=== PATIENT | male | born 1940 | race Caucasian/White ===

== ENCOUNTER 2022-07-27 20:43 | Inpatient (IN) | payer OTHER ==
[~2022-07-27] VITALS: Ht 185.4 cm; Wt 100.1 kg
[2022-07-27 22:05] LABS: Basophils # (auto) 0 10 ^3/uL (0-0.2); Basophils % (auto) 0.2 % (0.0-2.0); Eosinophils # (auto) 0.1 10 ^3/uL (0-0.8); Eosinophils % (auto) 0.8 % (0.0-7.0); Hematocrit 39.8 % (41.0-53.0); Hemoglobin 12.8 g/dL (13.5-17.5); Lymphocytes # (auto) 0.8 10 ^3/uL (0.4-5.4); Mean Corpuscular Hemoglobin 29.6 pg (28.0-32.0); Mean Corpuscular Hgb Conc. 32.3 g/dL (32.0-36.0); Mean Corpuscular Volume 91.7 fL (80.0-100.0); Monocytes # (auto) 0.7 10 ^3/uL (0-1.3); Monocytes % (auto) 5.3 % (0.0-12.0); Neutrophils # (auto) 11.4 10 ^3/uL (1.6-8.6); Neutrophils % (auto) 87.7 % (37.0-80.0); Red Blood Cells 4.34 10^6/uL (4.5-5.90); Red Cell Distribution Width 14.7 % (11.8-14.3)
[2022-07-27 22:18] LABS: INR 1.02 (0.9-1.15)
[2022-07-27 22:21] LABS: Albumin 3.4 g/dL (3.4-5.0); Blood Alcohol < 3.0 mg/dL (0-5); Blood Urea Nitrogen 23 mg/dL (7-18); Calcium 9.1 mg/dL (8.5-10.1); Carbon Dioxide 25 mmol/L (21-32); Glucose 151 mg/dL (74-106); Magnesium 2.3 mg/dL (1.6-2.6)
[2022-07-27 22:50] LABS: Chloride 108 mmol/L (98-107); GFR African American 73 mL/min; GFR Non-African American 60 mL/min; Potassium 4.3 mmol/L (3.5-5.1); Sodium 142 mmol/L (136-145)
[2022-07-27 22:58] LABS: Alanine Aminotransferase 28 U/L (16-61); Alkaline Phosphatase 99 U/L (45-117); Aspartate Aminotransferase 18 U/L (15-37); Bilirubin, Total 0.7 mg/dL (0.2-1.0)
[2022-07-27 22:59] LABS: Anion Gap 9 (5-15); Total Protein 6.2 g/dL (6.4-8.2)
[2022-07-27 23:00] LABS: BUN/Creatinine Ratio 18.7
[2022-07-28] MEDS ORDERED: ONDANSETRON HCL 4 MG/2 ML VIAL IV ONE (00:45)
[2022-07-28] MEDS ORDERED: MORPHINE SULFATE INJ 2 MG/ml SYRG IV ONE (00:45)
[2022-07-28] MEDS ORDERED: levoFLOXacin 750MG 150 ML IV ONE (01:15)
[2022-07-28 01:56] LABS: Urine Bacteria NONE SEEN /hpf (None Seen); Urine Blood Negative /uL (Negative); Urine Hyaline Cast FEW /lpf (0 - 2); Urine Mucus FEW (None Seen); Urine Specific Gravity 1.024 (1.001-1.035); Urine WBC 5 /hpf (0 - 3)
[2022-07-28 02:03] LABS: Alcohol, Urine < 3.0 mg/dL (0-10); Amphetamine Screen, Urine NEGATIVE (NEGATIVE); Barbiturate Scree,Urine NEGATIVE (NEGATIVE); Benzodiazephine Screen, Urine NEGATIVE (NEGATIVE); Cannabinoid Screen, Urine NEGATIVE (NEGATIVE); Cocaine Screen, Urine NEGATIVE (NEGATIVE); Opiate Scree,Urine NEGATIVE (NEGATIVE); Phencyclidine Screen, Urine NEGATIVE (NEGATIVE)
[2022-07-28] MEDS ORDERED: MORPHINE SULFATE INJ 2 MG/ml SYRG IV PRN ×2 (02:15)
[2022-07-28] MEDS ORDERED: DOCUSATE SOD 100 MG CAP PO PRN (02:15)
[2022-07-28] MEDS ORDERED: NITROGLYCERIN 0.4 MG SL TAB SL PRN (02:15)
[2022-07-28] MEDS ORDERED: ACETAMINOPHEN 325 MG TAB PO PRN (02:15)
[2022-07-28] MEDS ORDERED: ONDANSETRON HCL 4 MG/2 ML VIAL IV PRN (02:15)
[2022-07-28 02:27] VITALS: BP 116/59
[2022-07-28] MEDS ORDERED: IPRATROPIUM BROM 0.5 MG/2.5ML INH SOL NEB PRN (02:30)
[2022-07-28] MEDS ORDERED: ALBUTEROL SULF 2.5 MG/0.5ML(0.5%) NEB SOLN NEB PRN (02:30)
[2022-07-28 04:47] LABS: Basophils # (auto) 0.1 10 ^3/uL (0-0.2); Basophils % (auto) 0.5 % (0.0-2.0); Eosinophils # (auto) 0.1 10 ^3/uL (0-0.8); Eosinophils % (auto) 1.1 % (0.0-7.0); Hematocrit 36.2 % (41.0-53.0); Hemoglobin 12.3 g/dL (13.5-17.5); Lymphocytes # (auto) 0.8 10 ^3/uL (0.4-5.4); Mean Corpuscular Hemoglobin 30.3 pg (28.0-32.0); Mean Corpuscular Hgb Conc. 33.9 g/dL (32.0-36.0); Mean Corpuscular Volume 89.4 fL (80.0-100.0); Monocytes # (auto) 0.7 10 ^3/uL (0-1.3); Monocytes % (auto) 6.7 % (0.0-12.0); Neutrophils # (auto) 9.1 10 ^3/uL (1.6-8.6); Neutrophils % (auto) 84.7 % (37.0-80.0); Red Blood Cells 4.05 10^6/uL (4.5-5.90); Red Cell Distribution Width 14.3 % (11.8-14.3); White Blood Cell 10.8 10^3/uL (4.4-10.8)
[2022-07-28 05:06] LABS: Calcium 8.7 mg/dL (8.5-10.1)
[2022-07-28 05:09] LABS: BUN/Creatinine Ratio 20.2; Bilirubin, Total 0.6 mg/dL (0.2-1.0); Total Protein 6.1 g/dL (6.4-8.2)
[2022-07-28] MEDS: SODIUM CHLOR 0.9% PF (SALINE LOCK) 10ML VIAL/SYR IV SCH ×3 (05:43→23:44)
[2022-07-28] MEDS: HYDROcodone-ACET 5/325MG TAB PO PRN (08:34)
[2022-07-28] MEDS: FAMOTIDINE (10MG/ML) 2ML VL IV SCH ×2 (10:00→23:44)
[2022-07-28] MEDS: metroNIDAZOLE 500MG/100ML 100 ML IV SCH ×2 (14:11→23:45)
[2022-07-28 22:00] VITALS: BP 131/66
[2022-07-29 00:13] VITALS: BP 131/66
[2022-07-29] MEDS: HYDROcodone-ACET 5/325MG TAB PO PRN (01:05)
[2022-07-29 05:00] VITALS: BP 124/71
[2022-07-29] MEDS: metroNIDAZOLE 500MG/100ML 100 ML IV SCH ×3 (05:20→23:01)
[2022-07-29] MEDS: SODIUM CHLOR 0.9% PF (SALINE LOCK) 10ML VIAL/SYR IV SCH ×3 (05:30→23:02)
[2022-07-29 06:15] LABS: Basophils # (auto) 0.1 10 ^3/uL (0-0.2); Basophils % (auto) 0.8 % (0.0-2.0); Eosinophils # (auto) 0.3 10 ^3/uL (0-0.8); Eosinophils % (auto) 3.6 % (0.0-7.0); Hematocrit 36.7 % (41.0-53.0); Hemoglobin 12.4 g/dL (13.5-17.5); Lymphocytes # (auto) 1.5 10 ^3/uL (0.4-5.4); Lymphocytes % (auto) 19.1 % (10.0-50.0); Mean Corpuscular Hemoglobin 30.5 pg (28.0-32.0); Mean Corpuscular Hgb Conc. 33.9 g/dL (32.0-36.0); Mean Corpuscular Volume 89.9 fL (80.0-100.0); Monocytes # (auto) 0.8 10 ^3/uL (0-1.3); Monocytes % (auto) 10.3 % (0.0-12.0); Neutrophils # (auto) 5.2 10 ^3/uL (1.6-8.6); Neutrophils % (auto) 66.2 % (37.0-80.0); Red Blood Cells 4.08 10^6/uL (4.5-5.90); Red Cell Distribution Width 14.3 % (11.8-14.3); White Blood Cell 7.9 10^3/uL (4.4-10.8)
[2022-07-29 06:17] LABS: Potassium 4.3 mmol/L (3.5-5.1)
[2022-07-29 06:25] LABS: Albumin 2.9 g/dL (3.4-5.0); BUN/Creatinine Ratio 19.6; Bilirubin, Total 0.6 mg/dL (0.2-1.0); Total Protein 5.5 g/dL (6.4-8.2)
[2022-07-29] MEDS ORDERED: ESOM40CA83 PO (07:26)
[2022-07-29] MEDS ORDERED: DILT-104 PO (07:26)
[2022-07-29] MEDS ORDERED: POTA-167 PO (07:26)
[2022-07-29] MEDS ORDERED: LISI20TA28 PO (07:26)
[2022-07-29] MEDS ORDERED: APIX5TAB PO (07:26)
[2022-07-29] MEDS ORDERED: FURO40TA4 PO (07:26)
[2022-07-29] MEDS ORDERED: ATOR40TA52 PO (07:26)
[2022-07-29 08:39] VITALS: BP 134/75
[2022-07-29] MEDS: FAMOTIDINE (10MG/ML) 2ML VL IV SCH ×2 (09:52→23:02)
[2022-07-29] MEDS: levoFLOXacin 500MG 100 ML IV SCH (09:53)
[2022-07-29 13:00] VITALS: BP 137/74
[2022-07-29] MEDS ORDERED: IOHEXOL 350 MG/ML 100ML IJ ONE ×2 (14:12→16:17)
[2022-07-29 14:40] LABS: Cholesterol 104 mg/dL (< 200); Triglycerides 76 mg/dL (< 150)
[2022-07-29 14:43] LABS: HDL Cholesterol 43 mg/dL (40-59); LDL Cholesterol 52 mg/dL (< 100)
[2022-07-29] MEDS: ASPirin 81 mg TAB PO SCH (15:11)
[2022-07-29 16:56] VITALS: BP 136/69
[2022-07-29 22:00] VITALS: BP 116/66
[2022-07-29] MEDS ORDERED: ATORVASTATIN 20 MG TAB PO SCH (22:00)
[2022-07-29] MEDS: APIXABAN 5 MG TAB PO SCH (23:02)
[2022-07-30 05:00] VITALS: BP 128/75
[2022-07-30] MEDS: metroNIDAZOLE 500MG/100ML 100 ML IV SCH ×2 (05:42→14:40)
[2022-07-30] MEDS: SODIUM CHLOR 0.9% PF (SALINE LOCK) 10ML VIAL/SYR IV SCH ×2 (05:47→14:40)
[2022-07-30 08:00] VITALS: BP 128/78
[2022-07-30 08:30] VITALS: BP 128/78
[2022-07-30] MEDS: ASPirin 81 mg TAB PO SCH (10:30)
[2022-07-30] MEDS: APIXABAN 5 MG TAB PO SCH (10:30)
[2022-07-30] MEDS: FAMOTIDINE (10MG/ML) 2ML VL IV SCH (10:30)
[2022-07-30] MEDS: levoFLOXacin 500MG 100 ML IV SCH (10:30)
[2022-07-30] MEDS: HYDROcodone-ACET 5/325MG TAB PO PRN (10:42)
[2022-07-30 13:00] VITALS: BP 126/60
[2022-07-30] MEDS ORDERED: LEVO500T31 PO (13:25)
[2022-07-30] MEDS ORDERED: ALBUAER3 IN (13:25)
[2022-07-30] MEDS ORDERED: ASPI-325 PO (13:25)
[2022-07-30] MEDS ORDERED: APIX5TAB PO (13:26)
[2022-07-30 15:05] VITALS: BP 118/65
[2022-07-30 15:57] VITALS: BP 128/78
== END 2022-07-30 16:57 | disposition home health service (06) | DRG 64 ==
LOC: EDBD 20:43 → ER 20:47 → OVERFLOW 07-28 02:19 → WEST WING 07-28 20:42 → TELE-WESTW 07-29 01:04
PROVIDERS: ADMIT Nurse Practitioner Family; ATTEND Internal Medicine
DX: I63.511 Cerebral infarction due to unspecified occlusion or stenosis of right middle cerebral artery (principal); J69.0 Pneumonitis due to inhalation of food and vomit; G81.94 Hemiplegia, unspecified affecting left nondominant side; J44.0 Chronic obstructive pulmonary disease with (acute) lower respiratory infection; I48.20 Chronic atrial fibrillation, unspecified; E88.09 Other disorders of plasma-protein metabolism, not elsewhere classified; I10 Essential (primary) hypertension; S01.81XA Laceration without foreign body of other part of head, initial encounter; E78.5 Hyperlipidemia, unspecified; Z20.822 Contact with and (suspected) exposure to COVID-19; M54.50 Low back pain, unspecified; R73.9 Hyperglycemia, unspecified; I48.0 Paroxysmal atrial fibrillation; Z82.49 Family history of ischemic heart disease and other diseases of the circulatory system; Z90.49 Acquired absence of other specified parts of digestive tract; Z91.81 History of falling; Z99.3 Dependence on wheelchair; Z88.1 Allergy status to other antibiotic agents; I69.322 Dysarthria following cerebral infarction
CPT/HCPCS: 36415; 70450; 70486; 70496; 70551; 71250; 72125; 74176; 80053; 80061; 80307; 80320; 81001; 83036; 83735; 83880; 84484; 85025; 85610; 85730; 87426; 92610; 93306; 93886; 95819; 96365; 96375; 97163; G0378; J1956; J2405; J3490